=== PATIENT | male | born 1985 | race Caucasian/White ===

== ENCOUNTER 2020-08-05 10:52 | Emergency (ER) | payer SELFPAY ==
[~2020-08-05] VITALS: Ht 175.3 cm; Wt 79.4 kg
[2020-08-05 10:56] VITALS: BP 162/111
--- NOTE | 2020-08-05 11:09 | NUR ---
EMT AT BEDSIDE FOR EKG
--- NOTE | 2020-08-05 11:12 | NUR ---
34 Y/O MALE C/O CHEST PAIN THAT BEGAN LAST NIGHT, EXPANDING THROUGHOUT CHEST AND RADIATING TO BUE. PAIN IS 7/10 THAT HE DESCRIBES PRESSURE LIKE "SOMEONE IS SITTING ON ME". PT TOOK 2 ADVILS AROUND 0400 WITH SOME RELIEF. PT STATES THIS PAIN HAS BEEN INTERMITTENT X1 WEEK BUT WORSE TODAY. PATIENT ALSO NOTICED A RASH AROUND HIS EYES THAT BEGAN YESTERDAY., BILATERAL EYELIDS ARE SWOLLEN AND RED. DENIES ANY SOB OR COUGH/ N/V. PT A/O X4 WITH EVEN AND UNLABORED RESPIRATIONS. PT IN GOWN ATTACHED TO SIPHONER, LAYING IN BED WITH BED IN LOWEST POSITION, BRAKES LOCKED, X1 SIDERAIL UP. PMH: [facility]
--- NOTE | 2020-08-05 11:16 | NUR ---
DR COTO AT BEDSIDE
[2020-08-05] MEDS ORDERED: KETOROLAC 30 MG/ML VIAL IM ONE (11:25)
[2020-08-05] MEDS ORDERED: diphenhydrAMINE 50 MG CAP PO ONE (11:25)
--- NOTE | 2020-08-05 11:31 | NUR ---
LAB AT BEDSIDE FOR BLOOD DRAW
[2020-08-05 11:40] LABS: BASOPHILS # (AUTO) 0.1 K/uL (0.00-0.22); BASOPHILS % (AUTO) 1.4 % (0.0-2.0); EOSINOPHILS # (AUTO) 0.1 K/uL (0-0.4); HEMATOCRIT 44.3 % (36-52); HEMOGLOBIN 15.6 g/dL (12.0-18.0); LYMPHOCYTES # (AUTO) 1.6 K/uL (2.0-11.5); LYMPHOCYTES % (AUTO) 21.8 % (20.5-51.1); MEAN CORPUSCULAR HEMOGLOBIN 31 pg (27-31); MEAN CORPUSCULAR HGB CONC 35 g/dL (33-37); MEAN CORPUSCULAR VOLUME 88.6 fL (80-94); MONOCYTES # (AUTO) 0.5 K/uL (0.8-1.0); MONOCYTES % (AUTO) 6.5 % (1.7-9.3); NEUTROPHILS # (AUTO) 5.1 K/uL (1.8-7.7); NEUTROPHILS % (AUTO) 69.3 % (42.2-75.2); PLATELET COUNT (AUTO) 140 K/uL (140-450); RED CELL DISTRIBUTION WIDTH 12.3 % (11.6-13.7); WHITE BLOOD COUNT (AUTO) 7.4 K/uL (4.8-10.8)
[2020-08-05 11:51] LABS: ANION GAP 12.5 (8-16); CARBON DIOXIDE 25.5 mmol/L (21-32); CREATININE 0.9 mg/dL (0.6-1.3)
[2020-08-05] MEDS ORDERED: DIPH25TA53 PO (12:40)
[2020-08-05] MEDS ORDERED: PRED20TA5 PO (12:40)
[2020-08-05 12:52] VITALS: BP 159/100
--- NOTE | 2020-08-05 12:53 | NUR ---
Patient discharged with v/s stable. Written and verbal after care instructions given and explained. Patient alert, oriented and verbalized understanding of instructions. Ambulatory with steady gait. All questions addressed prior to discharge. ID band removed. Patient advised to follow up with PMD. Rx of BENADRYL AND PREDNISONE given. Patient educated on indication of medication including possible reaction and side effects. Opportunity to ask questions provided and answered.
== END 2020-08-05 12:53 | disposition home or self-care (01) ==
LOC: MED 10:52
DX: T78.40XA Allergy, unspecified, initial encounter (principal); R07.89 Other chest pain; F17.210 Nicotine dependence, cigarettes, uncomplicated
CPT/HCPCS: 36415; 71045; 80048; 84484; 85025; 93005; 96372; 99285; J1885; Q0163

== ENCOUNTER 2023-12-12 18:25 | Emergency (ER) | payer SELFPAY ==
[~2023-12-12] VITALS: Ht 167.6 cm; Wt 85.3 kg
[~2023-12-12 18:25] MED LIST: DIPH25TA53 PO; PRED20TA5 PO
[2023-12-12 19:12] VITALS: BP 130/95; PULSE 102; RESP 20; TEMP 98.2; O2SAT 98
[2023-12-12 19:40] LABS: BASOPHILS # (AUTO) 0.1 K/uL (0.00-0.22); BASOPHILS % (AUTO) 1.3 % (0.0-2.0); EOSINOPHILS # (AUTO) 0.2 K/uL (0-0.4); EOSINOPHILS % (AUTO) 2.2 % (0.0-4.0); HEMATOCRIT 44.9 % (36-52); HEMOGLOBIN 15.6 g/dL (12.0-18.0); LYMPHOCYTES # (AUTO) 2.3 K/uL (2.0-11.5); LYMPHOCYTES % (AUTO) 27.7 % (20.5-51.1); MEAN CORPUSCULAR HEMOGLOBIN 29 pg (27-31); MEAN CORPUSCULAR HGB CONC 35 g/dL (33-37); MONOCYTES # (AUTO) 0.6 K/uL (0.8-1.0); MONOCYTES % (AUTO) 6.9 % (1.7-9.3); NEUTROPHILS # (AUTO) 5.1 K/uL (1.8-7.7); NEUTROPHILS % (AUTO) 61.9 % (42.2-75.2); PLATELET COUNT (AUTO) 185 K/uL (140-450); RED BLOOD CELL COUNT(AUTO) 5.41 MIL/uL (4.20-6.10); RED CELL DISTRIBUTION WIDTH 12.7 % (11.6-13.7); WHITE BLOOD COUNT (AUTO) 8.2 K/uL (4.8-10.8)
[2023-12-12 20:12] VITALS: BP 126/82; PULSE 88; RESP 16; TEMP 98.2; O2SAT 98
[2023-12-12 20:19] LABS: ALANINE AMINOTRANSFERASE 34 U/L (12-78); ALBUMIN 4.3 g/dL (3.4-5.0); ALKALINE PHOSPHATASE 73 U/L (50-136); ANION GAP 15.7 (8-16); ASPARTATE AMINOTRANSFERASE 7 U/L (15-37); CALCIUM 9.4 mg/dL (8.5-10.1); CARBON DIOXIDE 24.9 mmol/L (21-32); CHLORIDE 100 mmol/L (98-107); CREATININE 0.9 mg/dL (0.6-1.3); GFR ARICAN-AMERICAN 122 mL/min (>90); GFR NON ARICAN-AMERICAN 101 mL/min (>90); GLUCOSE 320 mg/dL (74-106); LIPASE 39 U/L (16-77); POTASSIUM 3.6 mmol/L (3.5-5.1); SODIUM SERUM 137 mmol/L (136-145); TOTAL BILIRUBIN 0.6 mg/dL (0.0-1.0); TOTAL PROTEIN, SERUM 8.1 g/dL (6.4-8.2); UREA NITROGEN, BLOOD 14 mg/dL (7-18)
[2023-12-12] MEDS ORDERED: GLIP5TAB22 PO (21:50)
[2023-12-12] MEDS ORDERED: METF-1139 PO (21:50)
[2023-12-12] MEDS ORDERED: ATOR40TA PO (21:50)
[2023-12-12] MEDS ORDERED: LISI5TAB24 PO (21:50)
[2023-12-12 22:03] LABS: BLOOD GAS PCO2 23.7 mmHg (35.0-48.0); BLOOD GAS PH 7.526 (7.350-7.450)
[2023-12-12] MEDS: INSULIN REGULAR, HUMAN 100 UNIT/ML VIAL SUBQ ONE (22:03)
[2023-12-12 22:04] LABS: BLOOD GAS BASE EXCESS -1.4 mmol/L (-2.0-3.0); BLOOD GAS HCO3 19.2 mmol/L (21.0-28.0); BLOOD GAS O2 SAT% 98.1 % (94.0-98.0); BLOOD GAS PO2 98.3 mmHg (83.0-108.0)
== END 2023-12-12 20:12 | disposition home or self-care (01) ==
LOC: MED 18:25
DX: E11.65 Type 2 diabetes mellitus with hyperglycemia (principal); R07.89 Other chest pain; R53.1 Weakness; I10 Essential (primary) hypertension; Z79.84 Long term (current) use of oral hypoglycemic drugs; Z79.899 Other long term (current) drug therapy
CPT/HCPCS: 36415; 36600; 71045; 80053; 82803; 82948; 83690; 84484; 85025; 93005; 96372; 99285; J1815